=== PATIENT | female | born 1975 | race Caucasian/White ===

== ENCOUNTER → 2017-12-01 | Outpatient (CLI) | payer BC ==
[2017-12-01 13:10] LABS: FREE T4 (FREE THYROXINE) 0.94 ng/dl (0.64-1.79)
[2017-12-01 13:10] LABS: FREE T3 3.77 pg/ml (2.77-5.27)
== END | disposition home or self-care (01) ==
LOC: LAB 11:05
DX: E03.9 Hypothyroidism, unspecified (principal)
CPT/HCPCS: 84439; 84443; 84481

== ENCOUNTER → 2018-04-20 | Outpatient (CLI) | payer BC | END | disposition home or self-care (01) | LOC: LAB 08:00 | DX: Z01.818 Encounter for other preprocedural examination (principal); M20.11 Hallux valgus (acquired), right foot ==

== ENCOUNTER 2018-05-01 05:50 | Day surgery (SDC) | payer BC ==
[2018-04-20 18:45] LABS: ADD MAN DIFF? NO
[2018-04-20 18:50] LABS: WHITE BLOOD COUNT 7.1 10^3/ul (4.8-10.8)
[2018-04-20 18:50] LABS: BASOPHILS % 0.3 % (0.0-2.0); EOSINOPHILS # 0.1 10^3/ul (0.0-0.5); EOSINOPHILS % 1.6 % (0.0-7.0); HEMATOCRIT 41.4 % (37.0-47.0); HEMOGLOBIN 13.7 g/dl (12.0-16.0); LYMPHOCYTES # 2.2 10^3/ul (0.8-2.9); LYMPHOCYTES % 31.5 % (15.0-51.0); MEAN CORPUSCULAR HEMOGLOBIN 30.2 pg (29.0-33.0); MEAN CORPUSCULAR HGB CONC 33.1 g/dl (32.0-37.0); MEAN CORPUSCULAR VOLUME 91.2 fl (82.0-101.0); MEAN PLATELET VOLUME 11.1 fl (7.4-10.4); MONOCYTE # 0.5 10^3/ul (0.3-0.9); MONOCYTES % 7.2 % (0.0-11.0); NEUTROPHIL # 4.2 10^3/ul (1.6-7.5); NEUTROPHILS % 59.1 % (39.0-77.0); PLATELET COUNT 197 10^3/UL (140-415); RED BLOOD COUNT 4.54 10^6/ul (4.20-5.40); RED CELL DISTRIBUTION WIDTH 12.7 % (11.5-14.5)
[2018-04-20 19:00] LABS: ADD UMIC NO; UR ASCORBIC ACID NEGATIVE (NEGATIVE); UR BILIRUBIN (Dip) NEGATIVE (NEGATIVE); UR BLOOD (Dip) NEGATIVE (NEGATIVE); UR CLARITY CLEAR (CLEAR); UR COLOR YELLOW (YELLOW); UR GLUCOSE (Dip) NEGATIVE (NEGATIVE); UR KETONES (Dip) NEGATIVE (NEGATIVE); UR LEUKOCYTE ESTERASE (Dip) NEGATIVE Leu/ul (NEGATIVE); UR NITRITE (Dip) NEGATIVE (NEGATIVE); UR SPECIFIC GRAVITY (Dip) 1.021 (1.003-1.030); UR TOTAL PROTEIN (Dip) NEGATIVE (NEGATIVE); UR UROBILINOGEN (Dip) NEGATIVE (NEGATIVE)
[2018-04-20 19:08] LABS: ALANINE AMINOTRANSFERASE 18 IU/L (13-69); ALBUMIN 4.7 g/dl (3.3-4.9); ALBUMIN/GLOBULIN RATIO 1.34; ALKALINE PHOSPHATASE 34 IU/L (42-121); ANION GAP 16 (8-16); ASPARTATE AMINO TRANSFERASE 20 IU/L (15-46); BILIRUBIN,INDIRECT 0.6 mg/dl (0-1.1); BILIRUBIN,TOTAL 0.6 mg/dl (0.2-1.3); BLOOD UREA NITROGEN 18 mg/dl (7-20); CALCIUM 9.5 mg/dl (8.4-10.2); CARBON DIOXIDE 25 mmol/L (21-31); CHLORIDE 105 mmol/L (97-110); GLUCOSE 93 mg/dl (70-220); POTASSIUM 4.3 mmol/L (3.5-5.1); SODIUM 142 mmol/L (135-144); TOTAL PROTEIN 8.2 g/dl (6.1-8.1)
[2018-05-01] MEDS ORDERED: ROCURONIUM 50 MG INJ ×3 (07:02→12:25)
[2018-05-01] MEDS ORDERED: SUCCINYLCHOLINE CHLORIDE 100 MG/5 ML SYG IV (07:02)
[2018-05-01] MEDS ORDERED: LIDOCAINE 2% (SDV) 5 ML INJ (07:02)
[2018-05-01] MEDS ORDERED: GLYCOPYRROLATE 0.4 MG INJ ×2 (07:02→08:51)
[2018-05-01] MEDS ORDERED: PROPOFOL 20 ML (07:02)
[2018-05-01] MEDS ORDERED: NEOSTIGMINE 3 MG/3 ML SYRINGE ×2 (07:02→08:51)
[2018-05-01] MEDS: METHYLENE BLUE 1% 10 ML INJ (08:22)
[2018-05-01] MEDS: ROPIVACAINE 0.5 % 30 ML VIAL (08:22)
[2018-05-01] MEDS: POLYMYXIN/BACITRACIN 1L IRRIG (08:22)
[2018-05-01] MEDS: POVIDONE IODINE 10% 28.4 GM OINT (08:23)
[2018-05-01] MEDS ORDERED: ONDANSETRON 4 MG INJ (08:27)
[2018-05-01] MEDS ORDERED: METOCLOPRAMIDE 10 MG INJ (08:27)
[2018-05-01] MEDS ORDERED: ROPIVACAINE 0.5 % 30 ML VIAL (08:27)
[2018-05-01] MEDS ORDERED: SOD CHLORIDE 0.9% 1,000 ML IV (09:34)
[2018-05-01] MEDS: ONDANSETRON 4 MG INJ IV (09:52)
[2018-05-01] MEDS ORDERED: ONDANSETRON 4 MG INJ IV (10:00)
[2018-05-01] MEDS ORDERED: morphine 2 MG INJ IV (10:00)
[2018-05-01] MEDS ORDERED: LABETALOL HCL 20MG INJ IV (10:00)
[2018-05-01] MEDS ORDERED: FENTAnyl 50 MCG/ML VIAL IV ×2 (10:00)
[2018-05-01] MEDS ORDERED: EPHEDrine SULFATE 50 MG/5 ML SYG IV (10:00)
[2018-05-01] MEDS ORDERED: MIDAZOLAM 1 MG/ML 2 ML INJ IV (10:00)
[2018-05-01] MEDS ORDERED: MEPERIDINE 25 MG INJ IV (10:00)
[2018-05-01] MEDS ORDERED: HYDROmorphONE 1 MG/5 ML IV SYRINGE IV ×3 (10:00)
[2018-05-01] MEDS ORDERED: hydrALAzine 20 MG INJ IV (10:00)
[2018-05-01] MEDS ORDERED: OXYCODONE/ACETAMINOPHEN (5/325) TAB PO ×4 (10:00)
[2018-05-01] MEDS ORDERED: METOCLOPRAMIDE 10 MG INJ IV (10:00)
[2018-05-01] MEDS ORDERED: DIPHENHYDRAMINE 50 MG INJ IV (10:00)
[2018-05-01] MEDS: FENTAnyl 50 MCG/ML VIAL IV (10:11)
[2018-05-01] MEDS ORDERED: BUPIVACAINE 0.5% (SDV) 30 ML INJ (10:23)
[2018-05-01] MEDS: DEXAMETHASONE 4 MG/ML 1 ML INJ IV (10:23)
== END 2018-05-01 11:42 | disposition home or self-care (01) ==
LOC: SDS 05:50
DX: M20.11 Hallux valgus (acquired), right foot (principal); M21.611 Bunion of right foot; E03.9 Hypothyroidism, unspecified
CPT/HCPCS: 28298; 71046; 80053; 81003; 85025